=== PATIENT | female | born 1935 | race African-American/Black ===

== ENCOUNTER 2016-12-11 14:34 | Emergency (ER) | payer MEDICARE, OTHER ==
--- NOTE | 2016-12-11 17:25 | RAD ---
PA AND LATERAL CHEST: Date: 12/11/16 HISTORY: Cough. COMPARISON: 02/17/13. FINDINGS: Cardiac silhouette is mildly enlarged, but similar in size to the prior exam. Pulmonary vasculature is within normal limits. There is mild increase in interstitial densities at each lung base, greater on the left, but this is a stable finding when compared to the prior study and may be related to mi ld chronic lung changes. Lungs are otherwise clear. Vascular calcifications seen in the thoracic aor ta. No other interval change. IMPRESSION: 1. No acute cardiopulmonary process. 2. Cardiomegaly. 3. Mild prominence of the bibasilar interstitial densities, greater on the left, which is a stable finding and may be related to mild chronic lung changes. POS: KITTY
== END 2016-12-11 16:55 | disposition home or self-care (01) ==
LOC: NAV ERS 14:34
DX: J20.9 Acute bronchitis, unspecified (principal); I10 Essential (primary) hypertension
CPT/HCPCS: 71020; 93005

== ENCOUNTER 2020-03-12 04:39 | Emergency (ER) | payer MEDICARE, OTHER ==
[2020-03-12 05:47] LABS: Mean Corpuscular Hemoglobin 23.3 pg (27.0-31.0); Mean Corpuscular Volume 79.7 fL (78.0-98.0); Red Blood Cell (RBC) Count 4.71 mill/uL (4.20-5.40); White Blood Cell (WBC) Count 1.8 thou/uL (4.8-10.8)
[2020-03-12 05:48] LABS: Manual Diff?? YES; Mean Corpuscular HGB CONC 29.3 g/dL (32.0-36.0); Mean Platelet Volume 13.8 fL (7.4-10.4); Platelet Count 75 thou/uL (130-400)
[2020-03-12 05:54] LABS: ALT (SGPT) 21 U/L (8-55); AST (SGOT) 34 U/L (5-34); Albumin 3.3 g/dL (3.4-4.8); Alkaline Phosphatase 51 U/L (40-110); Anion Gap 12 mmol/L (10-20); BUN (Urea Nitrogen) 13 mg/dL (9.8-20.1); Bilirubin, Total 0.5 mg/dL (0.2-1.2); Calc. Creatinine Clearance 0 mL/min (70-130); Carbon Dioxide 20 mmol/L (23-31); Chloride 109 mmol/L (98-107); Estimated GFR-MDRD Greater than 90; Globulin 2.9 g/dL (2.4-3.5); Glucose 94 mg/dL (83-110); Lipase 12 U/L (8-78); Potassium 3.4 mmol/L (3.5-5.1); Protein, Total 6.2 g/dL (6.0-8.3); Sodium 138 mmol/L (136-145)
[2020-03-12 06:07] LABS: Lymphocytes 30 % (21-51); MDiff Complete? YES; Monocytes 14 % (0-10); Neutrophil 56 % (42-75); Nucleated RBC 1 % (0)
[2020-03-12 06:08] LABS: Platelet Morphology Comment Appears Decreased; RBC Morphology Normal
[2020-03-12 06:11] LABS: Bilirubin Negative (Negative); Blood, Urine Moderate (Negative); Clarity Clear (Clear); Glucose, Urine (Dipstick) Negative (Negative); Ketone, Urine 15 mg/dL (Negative); Leukocyte Negative (Negative); Nitrite Negative (Negative); Protein, Urine (Dipstick) 30 mg/dL (Neg-Trace)
[2020-03-12 06:14] LABS: Bacteria/HPF None Seen HPF (None Seen); Mucous/LPF 3+ LPF (<2+); Squamous Epithelial 0-3 HPF (0-3)
[2020-03-12 06:14] LABS: CKMB 2.8 ng/mL (0-6.6)
--- NOTE | 2020-03-12 07:32 | RAD ---
Exam: Chest one view HISTORY:Possible COVID 19 patient. Comparison: 02/17/2013, 12/11/2016 FINDINGS: Cardiac silhouette:Cardiomegaly Aorta: Elongation and atherosclerosis Pulmonary vessels: Normal Costophrenic angles: Clear LUNGS: Hyperinflation. There is persistent interstitial prominence likely representing chronic change . Superimposed infiltrate cannot be excluded. Pneumothorax: None Osseous abnormalities: No acute abnormality. Chronic changes in the right shoulder IMPRESSION: 1. Atherosclerosis 2. Hyperinflation with chronic interstitial changes. Superimposed infiltrate cannot be excluded.
[2020-03-12 09:19] LABS: Troponin I 0.029 ng/mL (< 0.028)
== END 2020-03-12 07:57 | disposition short-term general hospital (02) ==
LOC: NAV ERS 04:39
DX: D61.818 Other pancytopenia (principal); R79.89 Other specified abnormal findings of blood chemistry; I10 Essential (primary) hypertension; Z20.828 Contact with and (suspected) exposure to other viral communicable diseases
CPT/HCPCS: 51701; 71045; 80053; 81003; 81015; 82553; 83690; 84443; 84484; 85025; 93005; 96360; 96361

== ENCOUNTER 2020-03-18 16:22 | Inpatient (IN) | payer MEDICARE, MEDICAID, OTHER ==
[2020-03-18] MEDS ORDERED: Senokot S 8.6-50 MG TAB PO PRN (17:46)
[2020-03-18] MEDS: Enoxaparin Sodium 40 MG/0.4 ML SYRINGE SC SCH (20:31)
[2020-03-18] MEDS: Donepezil HCl 5 MG TAB PO SCH (20:31)
[2020-03-18] MEDS: Amlodipine 5 MG TAB PO SCH (20:31)
[2020-03-19] MEDS: Carvedilol 6.25 MG TAB PO SCH ×2 (08:59→18:15)
[2020-03-19] MEDS ORDERED: Prevnar 13-Val Conj/PF 0.5 ML SYRINGE IM ONE (09:00)
[2020-03-19] MEDS: Enoxaparin Sodium 40 MG/0.4 ML SYRINGE SC SCH ×2 (09:02→20:16)
[2020-03-19] MEDS: Acetaminophen 325 MG TAB PO PRN (09:02)
--- NOTE | 2020-03-19 10:56 | HP ---
CHIEF COMPLAINT: Recent COVID positive, here for therapy and nutrition. HISTORY OF PRESENT ILLNESS: This is an 84-year-old female, whom I have taken care of in the past and who has a long-standing history of noncompliance, I do not think I have seen her in the last couple of years and not sure if she is seeing somebody else, but she presented to the hospital with fatigue, weakness, and poor p.o. intake. She was COVID positive and admitted to [facility] in [place]. She did not have any hypoxemia and she did not require any COVID-19 regimen like steroids, anticoagulation, remdesivir, hydroxychloroquine or convalescent plasma. Her main problem at this time is poor p.o. intake. She was started on peripheral parenteral nutrition. She is also assessed by Speech Therapy and is on a dysphagic diet. She apparently ate 20% of her meals yesterday. She did have a low-grade fever yesterday and the day before, and she has been just treated with Tylenol. She was transferred here for therapy. The patient is resting in bed and just moaning. She does not respond to me to any verbal questions. She screams when you touch her, but she does not seem to be in any pain. No family at bedside. She was started on empiric Aricept, but I really feel that her dementia is more vascular and senile, and I doubt Aricept is going to make any difference. PAST MEDICAL HISTORY: 1. Hypertension. 2. Longstanding history of noncompliance. 3. Questionable history of iron-deficiency anemia. 4. Questionable history of venous stasis. PAST SURGICAL HISTORY: None documented. PSYCHOSOCIAL HISTORY: The patient denies any tobacco or alcohol abuse. No family present. ALLERGIES: NO KNOWN DRUG ALLERGIES. MEDICATIONS: She has been transferred here on the following medications: 1. Norvasc 10 mg at bedtime. 2. Carvedilol 6.25 mg b.i.d. 3. Aricept 5 mg daily. 4. Lovenox 40 mg subcu b.i.d. 5. Senokot-S 2 tablets p.o. b.i.d. p.r.n. constipation. REVIEW OF SYSTEMS: Not sure how accurate this is as the patient really pretty much moans through the questionnaire, but does not say yes to any chest pain, shortness of breath, PND, orthopnea or pedal edema. Denies any nausea, vomiting, diarrhea, constipation, hematemesis, melena or hematochezia. Denies any frequency, urgency, dysuria or hematuria. There is documentation of progressive weakness and poor p.o. intake. PHYSICAL EXAMINATION: GENERAL: This is an 84-year-old female, resting comfortably in bed. Does not really respond to any verbal commands. Occasional moans, but does not seem to be because of any pain or distress. VITAL SIGNS: She has a T-max of 100.3, pulse 70, respirations 22, oxygen saturation 93% on room air, and blood pressure 144/65. HEENT: Normocephalic and atraumatic. Bitemporal muscle wasting is noted. Pupils are equally reacting to light. NECK: No JVD, thyromegaly, cervical lymphadenopathy or throat exudates. No carotid bruits. CARDIOVASCULAR SYSTEM: S1 and S2 plus. RESPIRATORY SYSTEM: Normal vesicular breath sounds with occasional rhonchi. ABDOMEN: Soft, scaphoid, and nontender. Bowel sounds heard in all quadrants. EXTREMITIES: Without cyanosis or clubbing. Significant muscle atrophy is noted. CENTRAL NERVOUS SYSTEM: Awake, moves all 4 extremities spontaneously, really not cooperative for a comprehensive exam. LABORATORY VALUES: Pending. IMPRESSION: 1. COVID-19 positive with fever. 2. Hypertension. 3. Poor p.o. intake and possibly failure to thrive. 4. Longstanding history of noncompliance. 5. Deconditioning. PLAN: 1. Continue PPN. 2. Dysphagic diet. The patient will need assistance with feeding. 3. Continue blood pressure medications. 4. Check CBC and CMP. 5. Follow COVID-19 precautions. 6. Continue anticoagulation with Lovenox and monitor pulse oximetry and vital signs. 7. PT/OT eval and treat. 8. Routine laboratory values. 9. DVT prophylaxis. She is already on Lovenox. 10. Stress ulcer prophylaxis. We will start her on famotidine. 11. Decubitus precautions. 12. Discussed with nursing in detail. All questions answered. Job ID: [id number]
[2020-03-19] MEDS ORDERED: Sodium Chloride 0.9% 50 ML ONE (11:37)
[2020-03-19 12:29] LABS: ALT (SGPT) 81 U/L (8-55); AST (SGOT) 156 U/L (5-34); Albumin 2.6 g/dL (3.4-4.8); Alkaline Phosphatase 92 U/L (40-110); Anion Gap 13 mmol/L (10-20); BUN (Urea Nitrogen) 45 mg/dL (9.8-20.1); Bilirubin, Total 0.4 mg/dL (0.2-1.2); Calc. Creatinine Clearance 53 mL/min (70-130); Calcium 9.9 mg/dL (7.8-10.44); Carbon Dioxide 19 mmol/L (23-31); Chloride 111 mmol/L (98-107); Estimated GFR-MDRD 82; Glucose 132 mg/dL (83-110); Potassium 4.6 mmol/L (3.5-5.1); Protein, Total 5.6 g/dL (6.0-8.3); Sodium 138 mmol/L (136-145)
[2020-03-19 12:38] LABS: Hemoglobin 8.7 g/dL (12.0-16.0); Mean Corpuscular HGB CONC 29.9 g/dL (32.0-36.0); Mean Corpuscular Hemoglobin 23.6 pg (27.0-31.0); Mean Corpuscular Volume 79.2 fL (78.0-98.0); Mean Platelet Volume 15.1 fL (7.4-10.4); Platelet Count 113 thou/uL (130-400); RBC Distribution Width 18.3 % (11.5-14.5); Red Blood Cell (RBC) Count 3.66 mill/uL (4.20-5.40); White Blood Cell (WBC) Count 2.8 thou/uL (4.8-10.8)
[2020-03-19 13:30] LABS: MDiff Complete? YES
[2020-03-19 13:32] LABS: Anisocytosis SLIGHT = 6-15 cells (100X) (0-5/hpf); Band 1 % (5-11); Hypochromia SLIGHT = 6-15 cells (100X) (0-5/hpf); Lymphocytes 10 % (21-51); Monocytes 15 % (0-10); Neutrophil 74 % (42-75); Platelet Morphology Comment Appears Adequate
[2020-03-19] MEDS: AA 4.25 %/CALCIUM/LYTES/D5W 2,000 ML IV SCH (14:52)
[2020-03-19] MEDS: Donepezil HCl 5 MG TAB PO SCH (20:15)
[2020-03-19] MEDS: Famotidine 20 MG TAB PO SCH (20:15)
[2020-03-19] MEDS: Amlodipine 5 MG TAB PO SCH (20:15)
[2020-03-20] MEDS: Famotidine 20 MG TAB PO SCH ×2 (08:49→20:34)
[2020-03-20] MEDS: Enoxaparin Sodium 40 MG/0.4 ML SYRINGE SC SCH ×2 (08:49→20:35)
[2020-03-20] MEDS: Carvedilol 6.25 MG TAB PO SCH ×2 (08:50→17:22)
[2020-03-20] MEDS: Acetaminophen 325 MG TAB PO PRN (08:52)
[2020-03-20] MEDS: AA 4.25 %/CALCIUM/LYTES/D5W 2,000 ML IV SCH (14:14)
--- NOTE | 2020-03-20 15:56 | PRG ---
DATE OF SERVICE: 03/20/2020 SUBJECTIVE: Ms. Collins is doing the same. She ate very minimal breakfast, but apparently 50% of her lunch. She needs to be fed. She is on a pureed diet. No temperature today. OBJECTIVE: VITAL SIGNS: She is afebrile. Heart rate 83, respirations 18, oxygen saturation 93% on room air, blood pressure 144/65. CARDIOVASCULAR: S1-S2 plus. RESPIRATORY: Normal vesicular breath sounds. ABDOMEN: Soft, nontender. Bowel sounds heard in all quadrants. EXTREMITIES: Without cyanosis or clubbing. CENTRAL NERVOUS SYSTEM: Significant cognitive deficits, generalized weakness. IMPRESSION: 1. COVID positive, but asymptomatic and on room air. 2. Hypertension with long-standing history of noncompliance. 3. Dysphagia, on pureed diet. 4. Protein calorie malnutrition. 5. Failure to thrive. 6. Questionable history of iron deficiency anemia. PLAN: 1. Continue current medications. 2. Nutritional support. 3. Aspiration precautions. 4. Monitor respiratory status. 5. Physical therapy. 6. COVID-19 precautions. 7. Routine laboratory values. Job ID: [id number]
[2020-03-20] MEDS: Donepezil HCl 5 MG TAB PO SCH (20:34)
[2020-03-20] MEDS: Amlodipine 5 MG TAB PO SCH (20:34)
[2020-03-21] MEDS: Carvedilol 6.25 MG TAB PO SCH ×2 (09:07→19:33)
[2020-03-21] MEDS: Enoxaparin Sodium 40 MG/0.4 ML SYRINGE SC SCH ×2 (09:07→20:49)
[2020-03-21] MEDS: Famotidine 20 MG TAB PO SCH ×2 (09:07→20:49)
--- NOTE | 2020-03-21 14:06 | PRG ---
DATE OF SERVICE: 03/21/2020 SUBJECTIVE: Ms. Collins is doing the same. She is confused. She screams every time somebody touches her. She apparently ate about 25% to 50% of her meals. OBJECTIVE: VITAL SIGNS: She is afebrile; heart rate 85; respirations 18; oxygen saturation 96% on room air; blood pressure 165/55, this was before medications and after medications, 144/65. CARDIOVASCULAR: S1-S2 plus. RESPIRATORY: Normal vesicular breath sounds. ABDOMEN: Soft and nontender. Bowel sounds heard in all quadrants. EXTREMITIES: Without cyanosis or clubbing. CENTRAL NERVOUS SYSTEM: Pleasantly confused. Moves all four extremities. IMPRESSION: 1. Resolving COVID-19 infection. 2. No further fevers. 3. Poor p.o. intake. 4. Dementia, likely senile. 5. Hypertension. 6. History of iron deficiency anemia and failure to thrive. PLAN: 1. Do a 3-day calorie count. 2. Continue to feed the patient and encourage p.o. intake. 3. Monitor blood pressure. 4. Monitor respiratory status. 5. Physical therapy. 6. COVID-19 precautions. 7. We will discuss with daughter, Nadia Rose. If her p.o. intake is poor and see what her wishes are, I doubt even if we place a PEG tube that the patient will given her dementia and confusion and agitation. Job ID: [id number]
[2020-03-21] MEDS: AA 4.25 %/CALCIUM/LYTES/D5W 2,000 ML IV SCH (14:45)
[2020-03-21] MEDS: Donepezil HCl 5 MG TAB PO SCH (20:49)
[2020-03-21] MEDS: Amlodipine 5 MG TAB PO SCH (20:49)
[2020-03-22] MEDS: Carvedilol 6.25 MG TAB PO SCH ×2 (07:53→17:36)
[2020-03-22] MEDS: Enoxaparin Sodium 40 MG/0.4 ML SYRINGE SC SCH ×2 (07:55→20:37)
[2020-03-22] MEDS: Famotidine 20 MG TAB PO SCH ×2 (07:56→20:37)
[2020-03-22] MEDS: Acetaminophen 325 MG TAB PO PRN (07:56)
[2020-03-22] MEDS: AA 4.25 %/CALCIUM/LYTES/D5W 2,000 ML IV SCH (12:12)
--- NOTE | 2020-03-22 13:35 | PRG ---
DATE OF SERVICE: 03/22/2020 SUBJECTIVE: Ms. Collins is doing the same, confused, screams when you touch her, apparently ate about 50%. Tolerating her PPN, 3-day calorie count underway. I am going to call her power of corporate attorney, Nadia Rose and discuss the case with her. She is still a full code at present, so we will check and see, get information on that as well. OBJECTIVE: VITAL SIGNS: She is afebrile. Heart rate 71, respirations 18, oxygen saturation 90% on room air and she is now on 92% at 3 L, and blood pressure 159/72. CARDIOVASCULAR: S1 and S2 plus. RESPIRATORY: Normal vesicular breath sounds. ABDOMEN: Soft, nontender. Bowel sounds heard in all quadrants. EXTREMITIES: Without cyanosis or clubbing. CENTRAL NERVOUS SYSTEM: Confused. Moves all 4 extremities, but sleeps in a position. Really does not respond to any verbal stimuli. IMPRESSION: 1. COVID-19 positive, now with hypoxemia. 2. Poor p.o. intake. 3. Hypertension. 4. History of iron deficiency anemia. 5. Dementia. 6. Significant deconditioning. PLAN: 1. Continue current medications. 2. Await 3-day calorie count. 3. Discussed with [place] regarding code status. 4. Monitor hypoxemia. This may be getting to be active COVID-19 and may need aggressive treatment, and depending upon Nadia Rose's wishes, we may have to transfer her up the road. The patient has been refusing lab work, so none in the system since March 19. Job ID: [id number]
[2020-03-22] MEDS: Donepezil HCl 5 MG TAB PO SCH (20:37)
[2020-03-22] MEDS: Amlodipine 5 MG TAB PO SCH (20:37)
[2020-03-23] MEDS: Carvedilol 6.25 MG TAB PO SCH ×2 (07:46→17:52)
[2020-03-23] MEDS: Famotidine 20 MG TAB PO SCH ×2 (07:48→21:28)
[2020-03-23] MEDS: Enoxaparin Sodium 40 MG/0.4 ML SYRINGE SC SCH ×2 (07:48→21:28)
[2020-03-23] MEDS: Acetaminophen 325 MG TAB PO PRN (07:49)
[2020-03-23] MEDS: AA 4.25 %/CALCIUM/LYTES/D5W 2,000 ML IV SCH (11:34)
--- NOTE | 2020-03-23 13:20 | PRG ---
DATE OF SERVICE: 03/23/2020 SUBJECTIVE: Ms. Collins apparently is eating better and more awake and responsive, per nursing. She apparently ate 100% of breakfast. The patient is resting comfortably and denies any concerns. OBJECTIVE: VITAL SIGNS: She is afebrile. Heart rate 69; respirations 18; oxygen saturation 94%, she is down to 2.5 L of oxygen, is fluctuating anywhere between 88% to 94% and not sure if this is more related to her ; blood pressure is 123/60. CARDIOVASCULAR: S1 and S2 plus. RESPIRATORY: Normal vesicular breath sounds. ABDOMEN: Soft, nontender. Bowel sounds heard in all quadrants. EXTREMITIES: Without cyanosis or clubbing. CENTRAL NERVOUS SYSTEM: Still confused, awake, grossly nonfocal. IMPRESSION: 1. COVID-19 with hypoxemia. 2. Acute hypoxemic respiratory failure. 3. Improving p.o. intake. 4. Hypertension. 5. Deconditioning. 6. History of iron deficiency anemia. 7. History of medical noncompliance and cognitive impairment. PLAN: 1. Continue supportive care. 2. Await 3-day calorie count. 3. Therapy as tolerated. 4. Titrate oxygen as tolerated. 5. Discussed with her wylhn-su-maqwoysu, Nadia Rose yesterday, and she has not even thought about any advanced directives and she states that at this time she wants Ms. Collins to be a full code. She also has not thought about her feeding tube and she is going to discuss with the rest of the family, but if she keeps eating like she is doing today, then she should be . 6. Continue DVT prophylaxis with PlexiPulses. 7. Routine laboratory values. Job ID: [id number]
[2020-03-23] MEDS: Amlodipine 5 MG TAB PO SCH (21:27)
[2020-03-23] MEDS: Donepezil HCl 5 MG TAB PO SCH (21:28)
[2020-03-24] MEDS: Enoxaparin Sodium 40 MG/0.4 ML SYRINGE SC SCH ×2 (09:34→20:40)
[2020-03-24] MEDS: Famotidine 20 MG TAB PO SCH ×2 (09:35→20:40)
[2020-03-24] MEDS: Carvedilol 6.25 MG TAB PO SCH ×2 (09:35→17:47)
[2020-03-24] MEDS: AA 4.25 %/CALCIUM/LYTES/D5W 2,000 ML IV SCH (11:49)
--- NOTE | 2020-03-24 13:31 | PRG ---
DATE OF SERVICE: 03/24/2020 SUBJECTIVE: Ms. Collins is doing the same, not doing much with therapy. Her intake is still fluctuating. One of the meals she does well, but the others not so much, still waiting on the 3-day calorie count. Continues to require oxygen. OBJECTIVE: VITAL SIGNS: She is afebrile, heart rate 60, respirations 18, oxygen saturation 93% on 3 L via nasal cannula, blood pressure 130/63. CARDIOVASCULAR: S1 and S2 plus. RESPIRATORY: Normal vesicular breath sounds. ABDOMEN: Soft, nontender. Bowel sounds heard in all quadrants. EXTREMITIES: Without cyanosis or clubbing. CENTRAL NERVOUS SYSTEM: Cognitive deficits. Otherwise, no change. IMPRESSION: 1. COVID positive with hypoxemia and acute hypoxemic respiratory failure. 2. Hypertension. 3. Poor p.o. intake. 4. Possible dementia. 5. History of medical noncompliance. PLAN: 1. Continue current medications. 2. Nutritional support. 3. Await calorie count. 4. Monitor blood pressure. 5. Therapy as tolerated. 6. The patient refusing lab work. 7. The patient remains power of regulatory attorney. Job ID: [id number]
[2020-03-24] MEDS ORDERED: AA 4.25 %/CALCIUM/LYTES/D5W 2,000 ML IV SCH (14:00)
[2020-03-24] MEDS: Donepezil HCl 5 MG TAB PO SCH (20:40)
[2020-03-24] MEDS: Amlodipine 5 MG TAB PO SCH (20:40)
[2020-03-25] MEDS: Enoxaparin Sodium 40 MG/0.4 ML SYRINGE SC SCH ×2 (09:12→21:31)
[2020-03-25] MEDS: Carvedilol 6.25 MG TAB PO SCH ×2 (09:13→16:42)
[2020-03-25] MEDS: Famotidine 20 MG TAB PO SCH ×2 (09:13→21:31)
--- NOTE | 2020-03-25 13:38 | PRG ---
DATE OF SERVICE: 03/25/2020 SUBJECTIVE: Ms. Collins is much more awake and responsive to me today. She responds back verbally to my questions. She apparently did well with therapy as well. I got the 3-day calorie count back and she has intake usually about 90% to 130% of her daily requirements, and plan is to stop her TPN. I also noticed her to have her nasal cannula up in her face, and I advised the nursing to check her pulse oximetry and it was 96% on room air, so we are going to discontinue her oxygen. I informed her power of plastic surgery nurse, Ms. Rose, and if she continues to progress like this, probably within the next week she should be ready to go home. OBJECTIVE: VITAL SIGNS: She is afebrile. Heart rate 64, respirations 20, oxygen saturation 96% now on room air, blood pressure 130/63. CARDIOVASCULAR SYSTEM: S1 and S2 plus. RESPIRATORY SYSTEM: Normal vesicular breath sounds. ABDOMEN: Soft and nontender. Bowel sounds heard in all quadrants. EXTREMITIES: Without cyanosis or clubbing. CENTRAL NERVOUS SYSTEM: Generalized weakness. Grossly nonfocal. LABORATORY VALUES: The patient continues to refuse labs. IMPRESSION: 1. COVID-19 with resolved acute hypoxemic respiratory failure. 2. Hypertension, well controlled. 3. Deconditioning. 4. Poor p.o. intake, much improved. PLAN: 1. Continue current medications. 2. Nutritional support. 3. Physical therapy. 4. DVT prophylaxis with PlexiPulses. 5. Decubitus precautions. 6. Stress ulcer prophylaxis. 7. Discharge planning. Job ID: [id number]
[2020-03-25] MEDS: Amlodipine 5 MG TAB PO SCH (21:31)
[2020-03-25] MEDS: Donepezil HCl 5 MG TAB PO SCH (21:31)
[2020-03-26] MEDS: Carvedilol 6.25 MG TAB PO SCH ×2 (08:04→17:36)
[2020-03-26] MEDS: Enoxaparin Sodium 40 MG/0.4 ML SYRINGE SC SCH ×2 (08:05→21:20)
[2020-03-26] MEDS: Famotidine 20 MG TAB PO SCH ×2 (08:05→21:17)
--- NOTE | 2020-03-26 09:30 | PRG ---
DATE OF SERVICE: 03/26/2020 SUBJECTIVE: Ms. Collins is up in her chair. She apparently is not cooperating much with therapy this morning. She also hardly ate her breakfast. She did eat 100% of her dinner last night. She remains off her oxygen. She remains more alert. OBJECTIVE: VITAL SIGNS: She is afebrile, heart rate 70, respirations 20, oxygen saturation 92% on room air, and blood pressure 132/63. CARDIOVASCULAR SYSTEM: S1 and S2 plus. RESPIRATORY SYSTEM: Normal vesicular breath sounds. ABDOMEN: Soft and nontender. Bowel sounds heard in all quadrants. EXTREMITIES: Without cyanosis or clubbing. CENTRAL NERVOUS SYSTEM: Persistent cognitive deficits and generalized weakness. IMPRESSION: 1. Resolved COVID-19 infection with resolved acute hypoxemic respiratory failure. 2. Hypertension, well controlled. 3. History of iron-deficiency anemia. 4. Longstanding history of noncompliance. 5. Improving p.o. intake. 6. Deconditioning, gradual improvement. 7. Cognitive deficits. PLAN: 1. Continue current medications. 2. Nutritional support with aspiration precautions. 3. Physical therapy as the patient cooperates and tolerates. 4. The patient is still refusing lab work, aware of the risks. 5. Monitor vital signs and respiratory status. 6. Spoke with her POA, Nadia Rose, yesterday and updated her on Ms. Collins' condition. 7. Dr. Pelaez on-call this weekend. Job ID: [id number]
[2020-03-26] MEDS: Amlodipine 5 MG TAB PO SCH (21:17)
[2020-03-26] MEDS: Donepezil HCl 5 MG TAB PO SCH (21:18)
[2020-03-27] MEDS: Carvedilol 6.25 MG TAB PO SCH ×2 (08:28→16:59)
[2020-03-27] MEDS: Enoxaparin Sodium 40 MG/0.4 ML SYRINGE SC SCH ×2 (08:28→21:00)
[2020-03-27] MEDS: Famotidine 20 MG TAB PO SCH ×2 (08:28→21:00)
--- NOTE | 2020-03-27 09:05 | PRG ---
DATE OF SERVICE: 03/27/2020 SUBJECTIVE: Ms. Collins is a pleasant 84-year-old black female, who was COVID positive. She was stabilized, turned negative, and transferred to inpatient rehab because she had significant decrease in appetite. She ended up having to have TPN done, but her appetite has gradually increased and the TPN was stopped. She basically is back to her baseline. She does refuse laboratories, but when I talked to her this morning, she said she would continue to eat. Subjectively, the patient apparently has some cognitive deficits, and when I asked her if she was hungry, she just started to laugh and laugh, and said yes she would like some barron and eggs. OBJECTIVE: VITAL SIGNS: Today reveal blood pressure last night 144/68, blood pressure this morning 151/74; pulse 65; respirations 20; O2 saturation 93% on room air; and T-max 98.3. GENERAL: This is a well-developed, well-nourished, 84-year-old black female, in no apparent distress at this time. HEENT: Reveals normocephalic and nontraumatic cranium. Pupils are equally round and reactive. Extraocular movements are intact. Nose and throat are slightly dry. NECK: Supple without masses, nodes, or bruits. CHEST: Clear to auscultation. No rales, rhonchi, wheezes, or cough is heard. HEART: Reveals a regular rate and rhythm without murmurs, gallops, or rubs. ABDOMEN: Soft and nontender. Normal bowel sounds in all 4 quadrants. No rebound or guarding is noted. : Deferred. EXTREMITIES: Reveal no clubbing, cyanosis, or edema. NEUROLOGIC: The patient has persistent cognitive deficits, generalized weakness. IMPRESSION: 1. Resolved COVID-19. 2. Resolved acute hypoxic respiratory failure. 3. Hypertension, fairly well controlled. 4. Iron deficiency anemia, stable. 5. Longstanding history of noncompliance. 6. Much improved p.o. intake. 7. Deconditioned with generalized weakness. 8. Cognitive deficits. PLAN: 1. Continue to encourage the patient to eat well with aspiration precautions. 2. Continue present medications. 3. Continue to encourage the patient to get lab work. 4. Continue to monitor vital signs and respiratory status. 5. Stress ulcer prophylaxis. 6. Continue present medications. 7. Continue physical therapy and occupational therapy. Job ID: [id number]
[2020-03-27] MEDS: Donepezil HCl 5 MG TAB PO SCH (21:00)
[2020-03-27] MEDS: Amlodipine 5 MG TAB PO SCH (21:00)
[2020-03-28] MEDS: Enoxaparin Sodium 40 MG/0.4 ML SYRINGE SC SCH ×2 (08:18→21:57)
[2020-03-28] MEDS: Famotidine 20 MG TAB PO SCH ×2 (08:18→21:54)
[2020-03-28] MEDS: Carvedilol 6.25 MG TAB PO SCH ×2 (08:18→18:02)
--- NOTE | 2020-03-28 10:01 | PRG ---
DATE OF SERVICE: 03/28/2020 HISTORY OF PRESENT ILLNESS: Ms. Collins had a good day yesterday. She is actually being much more talkative and much more responsive. She states she is not hungry this morning, but I did encourage her to eat a little bit so that she could get stronger and go home soon. OBJECTIVE: VITAL SIGNS: Today reveal blood pressure 151/74, pulse 63 to 67, respirations 17 to 18, O2 saturation 93% to 96% on room air, T-max 97.7. GENERAL: This is a well-developed, well-nourished, very pleasant 84-year-old black female who is awake, alert and very talkative today. She is able to carry on conversation. HEENT: Normocephalic, nontraumatic cranium. Pupils are equal, round, and reactive. Extraocular movements are intact. Nose and throat are still slightly dry. NECK: Supple without masses, nodes, or bruits. CHEST: Clear to auscultation. No rales, rhonchi, wheezes, or cough is noted. HEART: Reveals a regular rate and rhythm without murmurs, gallops, or rubs. ABDOMEN: Soft and nontender. Normal bowel sounds noted in all 4 quadrants. No rebound or guarding is noted. : Deferred. EXTREMITIES: Reveal no clubbing, cyanosis, or edema. The patient has persistent cognitive deficits, but is much more alert. Generalized weakness. IMPRESSION: 1. Resolved coronavirus disease-19. 2. Resolved acute hypoxic respiratory failure. 3. Hypertension, fairly well controlled. 4. Iron deficiency anemia, stable. 5. Much improved p.o. intake. 6. Long-standing history of noncompliance. 7. Deconditioning with generalized weakness, improving. 8. Cognitive deficits. PLAN: 1. Continue present medication. 2. Continue to encourage the patient to eat well. 3. Hopefully, we can get some lab work for one of these days. 4. Continue to monitor vital signs, respiratory status. 5. Stress ulcer prophylaxis. 6. Continue present medications. 7. Continue present physical therapy and occupational therapy. Job ID: [id number]
[2020-03-28] MEDS: Donepezil HCl 5 MG TAB PO SCH (21:55)
[2020-03-28] MEDS: Amlodipine 5 MG TAB PO SCH (21:56)
[2020-03-29] MEDS: Famotidine 20 MG TAB PO SCH ×2 (08:43→21:19)
[2020-03-29] MEDS: Enoxaparin Sodium 40 MG/0.4 ML SYRINGE SC SCH ×2 (08:43→21:19)
[2020-03-29] MEDS: Carvedilol 6.25 MG TAB PO SCH ×2 (08:43→16:35)
--- NOTE | 2020-03-29 13:54 | PRG ---
DATE OF SERVICE: 03/29/2020 SUBJECTIVE: Ms. Collins is doing well. Denies any complaints. Slowly improving. Therapy remains on room air. No fever. No other concerns. Remains pleasantly confused. OBJECTIVE: VITAL SIGNS: She is afebrile. Heart rate 69, respirations 20, oxygen saturation 94% on room air, blood pressure 138/80. CARDIOVASCULAR: S1 and S2 plus. RESPIRATORY: Normal vesicular breath sounds. ABDOMEN: Soft, nontender. Bowel sounds heard in all quadrants. EXTREMITIES: Without cyanosis or clubbing. Peripheral pulses are palpable. CENTRAL NERVOUS SYSTEM: Grossly nonfocal other than improving deconditioning and cognitive deficits. IMPRESSION: 1. COVID-19 was tested positive on 03/12. She has been off her oxygen for almost 5 days now. No further symptoms. We will take her off respiratory isolation and droplet precautions. 2. Hypertension. 3. Possible dementia. 4. Longstanding history of noncompliance. 5. Improving p.o. intake. 6. Improving deconditioning. PLAN: 1. Discontinue isolation. 2. Nutritional support. 3. Monitor blood pressure. 4. Therapy. 5. Routine laboratory values. The patient has been refusing. 6. Discharge planning. Job ID: [id number]
[2020-03-29] MEDS: Amlodipine 5 MG TAB PO SCH (21:19)
[2020-03-29] MEDS: Donepezil HCl 5 MG TAB PO SCH (21:19)
[2020-03-30] MEDS: Carvedilol 6.25 MG TAB PO SCH ×2 (09:03→17:22)
[2020-03-30] MEDS: Enoxaparin Sodium 40 MG/0.4 ML SYRINGE SC SCH ×2 (09:03→20:34)
[2020-03-30] MEDS: Famotidine 20 MG TAB PO SCH ×2 (09:03→20:34)
--- NOTE | 2020-03-30 13:59 | PRG ---
DATE OF SERVICE: 03/30/2020 SUBJECTIVE: Ms. Collins is resting in bed. She is sleeping and arousable, but really not responsive to me. Therapy states that she sometimes cooperates but when she cooperates, she is able to do most of the activity that she needs to do. She is eating reasonably well. Remains off her oxygen. They are going to discuss about her case today and hopefully do some family training, and anticipate discharge by the end of this week if she continues to not cooperate. OBJECTIVE: VITAL SIGNS: She is afebrile. Heart rate 66, respirations 18, oxygen saturation 95% on room air, blood pressure 155/70. CARDIOVASCULAR SYSTEM: S1 and S2 plus. RESPIRATORY SYSTEM: Normal vesicular breath sounds. ABDOMEN: Soft and nontender. Bowel sounds heard in all quadrants. EXTREMITIES: Without cyanosis or clubbing. CENTRAL NERVOUS SYSTEM: Cognitive deficits, otherwise nonfocal. IMPRESSION: 1. Resolved COVID-19 infection. 2. Resolved acute hypoxemic respiratory failure. 3. Improving p.o. intake. 4. Cognitive deficits. 5. Hypertension. 6. Long-standing history of noncompliance. 7. Deconditioning. PLAN: 1. Continue current medications. 2. Low-sodium diet. 3. Therapy if she participates. 4. Discharge planning. 5. Family training. Job ID: [id number]
[2020-03-30] MEDS: Amlodipine 5 MG TAB PO SCH (20:34)
[2020-03-30] MEDS: Donepezil HCl 5 MG TAB PO SCH (20:34)
[2020-03-31] MEDS: Carvedilol 6.25 MG TAB PO SCH ×2 (07:51→18:05)
[2020-03-31] MEDS: Enoxaparin Sodium 40 MG/0.4 ML SYRINGE SC SCH ×2 (07:53→21:39)
[2020-03-31] MEDS: Famotidine 20 MG TAB PO SCH ×2 (07:53→21:39)
--- NOTE | 2020-03-31 13:41 | PRG ---
DATE OF SERVICE: 03/31/2020 SUBJECTIVE: Ms. Collins is sleeping, but arousable. She denies any questions or concerns. She is mostly nonverbal, discussed with nursing. Apparently, Therapy has contacted daughter to come for family training. The patient is mostly uncooperative with therapy sessions. OBJECTIVE: VITAL SIGNS: She is afebrile. Heart rate 66, respirations 18, oxygen saturation 95% on room air, blood pressure is 132/64. CARDIOVASCULAR: S1 and S2 plus. RESPIRATORY: Normal vesicular breath sounds. ABDOMEN: Soft, nontender. Bowel sounds heard in all quadrants. EXTREMITIES: Without cyanosis or clubbing. CENTRAL NERVOUS SYSTEM: Generalized weakness. IMPRESSION: 1. Resolved COVID-19 infection. 2. Resolved acute hypoxemic respiratory failure. 3. Improving p.o. intake. 4. Hypertension, reasonable control. 5. Deconditioning. 6. Long-standing history of noncompliance. PLAN: 1. Continue current medications. 2. Nutritional support. 3. Therapy as tolerated. 4. Family training. 5. Discharge planning. Job ID: [id number]
[2020-03-31] MEDS: Amlodipine 5 MG TAB PO SCH (21:39)
[2020-03-31] MEDS: Donepezil HCl 5 MG TAB PO SCH (21:39)
[2020-04-01] MEDS: Carvedilol 6.25 MG TAB PO SCH ×2 (09:37→17:11)
[2020-04-01] MEDS: Enoxaparin Sodium 40 MG/0.4 ML SYRINGE SC SCH ×2 (09:38→20:50)
[2020-04-01] MEDS: Famotidine 20 MG TAB PO SCH ×2 (09:38→21:00)
--- NOTE | 2020-04-01 13:29 | PRG ---
DATE OF SERVICE: 04/01/2020 SUBJECTIVE: Ms. Collins is doing same. Awaiting family training and then she should be ready for discharge. Discussed with nursing. No concerns. OBJECTIVE: VITAL SIGNS: She is afebrile. Heart rate 66, respirations 18, oxygen saturation 97% on room air, blood pressure 159/73. CARDIOVASCULAR SYSTEM: S1 and S2 plus. RESPIRATORY SYSTEM: Normal vesicular breath sounds. ABDOMEN: Soft, nontender. Bowel sounds heard in all quadrants. EXTREMITIES: Without cyanosis or clubbing. CENTRAL NERVOUS SYSTEM: Generalized weakness and cognitive deficits. IMPRESSION: 1. Resolved COVID-19 infection. 2. Resolved acute hypoxemic respiratory failure. 3. Hypertension. 4. Improving p.o. intake. 5. Cognitive deficits, chronic. 6. Deconditioning, still low improvement. PLAN: 1. Continue current medications. 2. Nutritional support. 3. Aspiration precautions. 4. Monitor blood pressure. 5. DVT prophylaxis with PlexiPulses. 6. Decubitus precaution. 7. Therapy. 8. Discharge planning. Job ID: [id number]
[2020-04-01] MEDS: Donepezil HCl 5 MG TAB PO SCH (20:51)
[2020-04-01] MEDS: Amlodipine 5 MG TAB PO SCH (20:51)
[2020-04-01] MEDS ORDERED: Famotidine 20 MG TAB ONE (20:55)
[2020-04-02] MEDS ORDERED: Famotidine 20 MG TAB ONE (08:07)
[2020-04-02] MEDS: Famotidine 20 MG TAB PO SCH ×2 (08:33→21:32)
[2020-04-02] MEDS: Enoxaparin Sodium 40 MG/0.4 ML SYRINGE SC SCH ×2 (08:33→21:31)
[2020-04-02] MEDS: Carvedilol 6.25 MG TAB PO SCH ×2 (08:33→16:44)
--- NOTE | 2020-04-02 09:09 | PRG ---
DATE OF SERVICE: 04/02/2020 SUBJECTIVE: Ms. Collins is resting in bed. She is participating on and off with therapy. Therapy has notified me that she will need a hospital bed at home as well as a wheelchair. The patient does have cognitive impairment and has impulsive behavior and is at high risk for falls. Daughter and Therapy apparently feel that it is best that she have a wheelchair for mobility within the house when she gets more confused. The patient does also have some significant increased muscle tone and would benefit from a hospital bed, where she can be positioned at various angles, which is not possible with the regular bed. This is also easier for the niece, who takes care of her to get her in and out of bed if the height is adjustable. The patient does not need any traction. She does not have any heart failure. She does have significant deconditioning. She seems to yell and scream when she is touched or moved, so I am not sure she is in pain, but if that is the case, a hospital bed would help relieve it by allowing her to sleep in different positions, which is not possible with the regular bed. Please use this note as a [id number] for her hospital bed and wheelchair. When she is not confused, will be able to use the wheelchair, but the wheelchair is for her niece to push her inside the house. Niece states that there is enough room at home for them to use a manual wheelchair. OBJECTIVE: VITAL SIGNS: The patient is afebrile. Heart rate 58, respirations 20, oxygen saturation 97% on room air, blood pressure 124/60. CARDIOVASCULAR: S1, S2 plus. RESPIRATORY: Normal vesicular breath sounds. ABDOMEN: Soft, nontender. Bowel sounds heard in all quadrants. EXTREMITIES: Without cyanosis or clubbing. CENTRAL NERVOUS SYSTEM: Generalized weakness, cognitive deficits, otherwise nonfocal. IMPRESSION: 1. Hypertension, well controlled. 2. Cognitive dysfunction, chronic. 3. Resolved COVID-19 infection. 4. Resolved acute hypoxemic respiratory failure. 5. Deconditioning. 6. Long-standing history of noncompliance. PLAN: 1. Continue current medications. 2. Heart-healthy diet with aspiration precautions. 3. Therapy as tolerated. 4. Arrange for hospital bed and wheelchair. 5. DVT prophylaxis with PlexiPulses. The patient most of the time refuses to wear it. 6. Decubitus precautions. 7. Stress ulcer prophylaxis. 8. Dr. Pelaez on-call this weekend. Niece states that she is busy this weekend and she can take Mrs. Collins home on Sunday. Job ID: [id number]
[2020-04-02] MEDS: Amlodipine 5 MG TAB PO SCH (21:32)
[2020-04-02] MEDS: Donepezil HCl 5 MG TAB PO SCH (21:32)
[2020-04-03] MEDS: Famotidine 20 MG TAB PO SCH ×2 (08:33→21:43)
[2020-04-03] MEDS: Enoxaparin Sodium 40 MG/0.4 ML SYRINGE SC SCH ×2 (08:34→21:43)
[2020-04-03] MEDS: Carvedilol 6.25 MG TAB PO SCH ×2 (08:34→16:18)
[2020-04-03] MEDS: Donepezil HCl 5 MG TAB PO SCH (21:43)
[2020-04-03] MEDS: Amlodipine 5 MG TAB PO SCH (21:43)
[2020-04-04 06:01] VITALS: BMI 18.1
--- NOTE | 2020-04-04 08:41 | PRG ---
DATE OF SERVICE: 04/04/2020 SUBJECTIVE: The patient is an 84-year-old black female who was COVID positive. She was treated, improved significantly, and was brought to [facility] for physical therapy and occupational therapy. The patient is noted to have some significant dementia that may have been aggravated by her hypoxic respiratory failure. She has iron deficient anemia and her oral intake has been poor. Since she has been here, we have been feeding her and it has much improved. Yesterday, the caregiver states she ate about half or a little bit more, so far today she is eating pretty much all of her breakfast. OBJECTIVE: VITAL SIGNS: Today reveal blood pressure 131/63, pulse 64, respirations 20, O2 saturation 97% on room air, T-max 98.3. GENERAL: This is a well-developed, well-nourished 84-year-old black female who is presently eating breakfast and eating really well. HEENT: Reveals normocephalic and nontraumatic cranium. Pupils are equally round and reactive. Extraocular movements are intact. Nose and throat are dry, but clear. NECK: Supple without masses, nodes, or bruits. CHEST: Clear to auscultation. No rales, rhonchi, wheezes, or cough is noted. HEART: Reveals a regular rate and rhythm without murmurs, gallops, or rubs. ABDOMEN: Soft and nontender. Normal bowel sounds are noted in all 4 quadrants. No rebound or guarding is noted. GENITOURINARY: Deferred. EXTREMITIES: Reveal no clubbing, cyanosis, or edema. NEUROLOGIC: The patient has significant persistent cognitive deficits but when she eats, she is much more alert. ASSESSMENT: 1. Resolved coronavirus disease-19. 2. Resolved acute hypoxic respiratory failure. 3. Hypertension, well controlled. 4. Iron deficiency anemia, stable. 5. Poor oral intake unless she is fed. 6. History of noncompliance in the past. 7. Generalized weakness with deconditioning. 8. Cognitive deficits. PLAN: 1. Continue to encourage the patient to eat and continue to feed the patient. 2. Continue to monitor the patient's vital signs and respiratory status. 3. Continue present medications. 4. Stress ulcer prophylaxis. 5. Decubitus precautions. 6. Continue PT and OT. Dr. Ivan will be back to care for the patient after 9 o'clock tonight. Job ID: [id number]
--- NOTE | 2020-04-04 08:42 | PRG ---
DATE OF SERVICE: 04/03/2020 SUBJECTIVE: Ms. Collins is an 84-year-old black female with dementia, but is recovering from coronavirus. She is extremely weak and has had significant acute hypoxic respiratory failure. She is doing fairly well here in rehab, still somewhat anemic. She is challenged because of her dementia. Dr. Smith did order a wheelchair for her niece, who cares for her to have at home to get her around and that is going to be a godsend in their house. She is found eating this morning, but has to be fed or she does not eat well. She had a good day yesterday and she has no concerns or complaints. Presently, a caregiver is feeding her. OBJECTIVE: VITAL SIGNS: Reveal blood pressure 123/55, pulse 68, respirations 20, O2 saturations 95% to 96% on room air, T-max 96.5. GENERAL: This is a well-developed, well-nourished black female, in no apparent distress at this time. HEENT: Reveals normocephalic and nontraumatic cranium. Pupils equally round and reactive. Extraocular movements are intact. Nose and throat are slightly dry. NECK: Supple without masses, nodes, or bruits. CHEST: Clear to auscultation. No rales, rhonchi, wheezes, or cough is noted. HEART: Reveals a regular rate and rhythm without murmurs, gallops, or rubs. ABDOMEN: Soft, nontender without organomegaly. Normal bowel sounds are heard in all 4 quadrants. No rebound or guarding is noted. : Deferred. EXTREMITIES: Reveal no clubbing, cyanosis, or edema. ASSESSMENT: 1. Generalized weakness. 2. Cognitive deficits. 3. Hypertension, well controlled. 4. Resolved COVID-19 infection. 5. Resolved acute hypoxic respiratory failure. 6. Deconditioning. 7. History of noncompliance. PLAN: 1. Continue healthy heart diet with aspiration precautions. 2. Continue to feed the patient so she eats well. 3. Continue therapy. 4. Hospital bed and wheelchair have been ordered for the patient at home. 5. Plexipulses for her DVT prophylaxis. 6. Decubitus precautions. 7. Stress ulcer prophylaxis. 8. Plan on discharge on Sunday. Job ID: [id number]
[2020-04-04] MEDS: Carvedilol 6.25 MG TAB PO SCH ×2 (09:30→17:01)
[2020-04-04] MEDS: Famotidine 20 MG TAB PO SCH ×2 (09:30→21:05)
[2020-04-04] MEDS: Enoxaparin Sodium 40 MG/0.4 ML SYRINGE SC SCH ×2 (09:30→21:06)
[2020-04-04] MEDS: Amlodipine 5 MG TAB PO SCH (21:05)
[2020-04-04] MEDS: Donepezil HCl 5 MG TAB PO SCH (21:06)
[2020-04-05] MEDS: Carvedilol 6.25 MG TAB PO SCH ×2 (07:45→17:20)
[2020-04-05] MEDS: Famotidine 20 MG TAB PO SCH ×2 (07:46→20:41)
[2020-04-05] MEDS: Enoxaparin Sodium 40 MG/0.4 ML SYRINGE SC SCH ×2 (07:46→20:42)
--- NOTE | 2020-04-05 13:09 | PRG ---
DATE OF SERVICE: 04/05/2020 SUBJECTIVE: Ms. Collins is resting in bed. She nods her head and says no for any concerns. Anticipated discharge is tomorrow. Apparently, her DME has been approved according to nursing. She is doing the same. OBJECTIVE: VITAL SIGNS: She is afebrile. Heart rate 57, respirations 18, oxygen saturation 97% on room air, blood pressure 139/63. CARDIOVASCULAR: S1 and S2 plus. RESPIRATORY: Normal vesicular breath sounds. ABDOMEN: Soft, nontender. Bowel sounds heard in all quadrants. EXTREMITIES: Without cyanosis or clubbing. CENTRAL NERVOUS SYSTEM: Cognitive deficits present, grossly nonfocal. IMPRESSION: 1. Resolved COVID-19 infection and acute hypoxemic respiratory failure. 2. Hypertension. 3. Improved p.o. intake. 4. Mild dysphagia. 5. Cognitive dysfunction. 6. Longstanding history of noncompliance. PLAN: 1. Continue current medications. 2. Discharge planning. 3. Anticipate discharge tomorrow. 4. Nutritional support with aspiration precautions. 5. Outpatient followup with PCP. Job ID: [id number]
[2020-04-05] MEDS: Amlodipine 5 MG TAB PO SCH (20:41)
[2020-04-05] MEDS: Donepezil HCl 5 MG TAB PO SCH (20:42)
[2020-04-06] MEDS: Carvedilol 6.25 MG TAB PO SCH (08:15)
[2020-04-06 08:16] VITALS: BP 137/64
[2020-04-06] MEDS: Famotidine 20 MG TAB PO SCH (08:16)
[2020-04-06] MEDS: Enoxaparin Sodium 40 MG/0.4 ML SYRINGE SC SCH (08:16)
[2020-04-06 08:47] VITALS: TEMP 98.2
--- NOTE | 2020-04-06 15:11 | DIS ---
DATE OF ADMISSION: 03/18/2020 DATE OF DISCHARGE: 04/06/2020 PRINCIPAL DIAGNOSES: 1. COVID-19 infection. 2. Resolved acute hypoxemic respiratory failure. 3. Hypertension. 4. Improved p.o. intake. 5. Mild dysphagia. 6. Long-standing history of noncompliance. 7. Cognitive deficits. COMPLICATIONS: None. ADVERSE REACTIONS: None. PROCEDURES: None. CONSULTATIONS: Physical Therapy and Occupational Therapy. HOSPITAL COURSE: The patient was admitted as a transfer from [facility], where she was admitted with COVID-19 infection. She did become hypoxemic here, requiring oxygen treatment. She had poor p.o. intake and was seen by both Speech Therapy and was advised on a pureed diet with aspiration precautions. She also had a 3-day calorie count, where she started to eat better. She was titrated off her oxygen. She has been able to participate with therapy on and off. She was deemed to have reached maximum medical improvement. Her niece wants to take her home. She is the power of attorney recruiter, Nadia Rose. She required she wanted a hospital bed and wheelchair, which has been arranged. [id number] documentation was done in one of my previous dictations. She is being discharged to home. DISCHARGE MEDICATIONS: 1. Norvasc 10 mg daily. 2. Carvedilol 6.25 mg b.i.d. 3. Aricept 5 mg daily. A month's supply of these prescriptions [email or web address]. PHYSICAL EXAMINATION: VITAL SIGNS: On the day of discharge, the patient is afebrile. Heart rate 58, respirations 18, oxygen saturation 97% on room air, blood pressure 137/64. CARDIOVASCULAR: S1 and S2 plus. RESPIRATORY: Normal vesicular breath sounds. ABDOMEN: Soft, nontender. Bowel sounds heard in all quadrants. EXTREMITIES: Without cyanosis or clubbing. CENTRAL NERVOUS SYSTEM: Grossly nonfocal. Cognitive deficits are present. DISCHARGE INSTRUCTIONS: 1. Continue current medications. 2. Follow low-sodium diet with the appropriate diet consistency as recommended by therapist and aspiration precautions. 3. Activity as tolerated. 4. Follow up with her PCP in 10 to 14 days. 5. Informed her niece that the prescriptions have been sent into [facility]. 6. Total time spent on this discharge including coordination of care, 35 minutes. Job ID: [id number]
--- NOTE | 2020-04-08 09:37 | PQF ---
CLINICAL DOCUMENTATION CLARIFICATION FORM: Dear : ____Shayan Ivan Date / Time: 2021 Please exercise your independent, professional judgment in responding to the clarification form. Clinical indicators are provided on the bottom of this form for your review Please check appropriate box(es): [ ] Protein Calorie Malnutrition: [ ] Mild [ x] Moderate [ ] Severe [ ] Other Malnutrition (please specify) Acute [ ] Other diagnosis [ ] Unable to determine Physician Signature: Date/Time: For continuity of documentation, please document condition throughout progress notes and discharge summary. Thank You To be completed by CDI/Coding staff for physician review: w Present w Clinical Indicators - Signs / Symptoms / Labs w Results and Location in Medical Record w [x ] w Protein calorie malnutrition w Progress note, 03/20, Shayan Dumont MD w [x ] w Total protein: 5.6L , Albumin:2.6L w Laboratory report, 03/19, w [x ] w BMI: 18.1 w FNS assessment, 04/04 w [x ] w She had poor p.o intake w DS, 04/06, Shayan Dumont MD w [x ] w Mild dysphagia w DS, 04/06, Shayan Dumont MD w [ x ] w Failure to thrive w Progress note, 03/20, Shayan Dumont MD w Present w Risk Factors w Results and Location in Medical Record w [x ] w COVID positive w Progress note, 03/20, Shayan Dumont MD w [x ] w Iron deficiency anemia w Progress note, 03/20Tim Pollachi MD w Present w Treatments w Results and Location in Medical Record w [x ] w Ensure Enlive TID w FNS assessment, 04/04 w [x ] w Sodium chloride.IV w Mr, 03/19 w w w CDS/Mailing Machine Assistant Signature: Mingo Omer Phone #: [phone] Date/Time:04/08/2020 Moderate Malnutrition (in acute illness) ? Energy Intake: <75% of estimated energy requirement for > 7 days ? Weight Loss: 1-2%/1 week; 5%/ 1 month; 7.5%/3 months ? Other: mild body fat loss; mild muscle mass loss; mild fluid accumulation; Severe Malnutrition (in acute illness) ? Energy Intake: ? 50% of estimated energy requirement for ? 5 days ? Weight Loss: >2%/1 week; >5%/1 month; >7.5%/3 months ? 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 Energy Intake: <75% of estimated energy requirement for ?1 month ? Weight Loss: 5%/1 month; 7.5%/3 months; 10%/6 months; 20%/1 year ? Other: mild body fat loss; mild muscle mass loss; mild fluid accumulation Severe Malnutrition (in chronic illness) ? Energy Intake: ?75% of estimated energy requirement for ?1 month ? Weight Loss: >5%/1 month; >7.5%/3 months; >10%/6 months; >20%/1 year ? 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
== END 2020-04-06 13:00 | disposition home or self-care (01) | DRG 177 ==
LOC: NAV ACUTE 16:22
PROVIDERS: ADMIT Internal Medicine; ATTEND Internal Medicine
DX: U07.1 COVID-19 (principal); J96.01 Acute respiratory failure with hypoxia; Z68.1 Body mass index [BMI] 19.9 or less, adult; E44.0 Moderate protein-calorie malnutrition; I10 Essential (primary) hypertension; R13.10 Dysphagia, unspecified; R62.7 Adult failure to thrive; F03.90 Unspecified dementia, unspecified severity, without behavioral disturbance, psychotic disturbance, mood disturbance, and anxiety; R41.89 Other symptoms and signs involving cognitive functions and awareness; R53.81 Other malaise; Z91.14 Patient's other noncompliance with medication regimen
CPT/HCPCS: 80053; 83735; 85025; J1650

== ENCOUNTER 2020-05-04 20:25 | Emergency (ER) | payer MEDICARE, MEDICAID ==
[2020-05-04 21:17] LABS: #Eosinphils 0.3 thou/uL (0.0-0.7); #Lymphocytes 1.3 thou/uL (1.20-3.40); #Monocytes 0.6 thou/uL (0.11-0.59); #Neutrophils 2.8 thou/uL (1.40-6.50); %Basophils 1.6 % (0.0-1.0); %Eosinophils 5.7 % (0.0-10.0); %Lymphocytes 24.5 % (21.0-51.0); %Monocytes 13.6 % (0.0-10.0); %Neutrophils 54.6 % (42.0-75.0); Hemoglobin 9.7 g/dL (12.0-16.0); Mean Corpuscular HGB CONC 29.1 g/dL (32.0-36.0); Mean Corpuscular Hemoglobin 23.3 pg (27.0-31.0); Mean Corpuscular Volume 80.3 fL (78.0-98.0); Mean Platelet Volume 10.5 fL (7.4-10.4); Platelet Count 190 thou/uL (130-400); RBC Distribution Width 17.2 % (11.5-14.5); Red Blood Cell (RBC) Count 4.11 mill/uL (4.20-5.40)
[2020-05-04 21:24] LABS: Hypochromia SLIGHT = 6-15 cells (100X) (0-5/hpf); Microcytosis MODERATE=15-30 cells (100X) (0-5/hpf)
[2020-05-04 21:32] LABS: ALT (SGPT) 15 U/L (8-55); AST (SGOT) 19 U/L (5-34); Albumin 3.1 g/dL (3.4-4.8); Alkaline Phosphatase 79 U/L (40-110); Anion Gap 11 mmol/L (10-20); BUN (Urea Nitrogen) 15 mg/dL (9.8-20.1); Bilirubin, Total 0.3 mg/dL (0.2-1.2); CK (CPK) 33 U/L (29-168); Calc. Creatinine Clearance 0 mL/min (70-130); Calcium 10.9 mg/dL (7.8-10.44); Carbon Dioxide 23 mmol/L (23-31); Chloride 108 mmol/L (98-107); Estimated GFR-MDRD 90; Globulin 4.2 g/dL (2.4-3.5); Glucose 113 mg/dL (83-110); Potassium 3.8 mmol/L (3.5-5.1); Protein, Total 7.3 g/dL (6.0-8.3); Sodium 138 mmol/L (136-145)
== END 2020-05-04 21:53 | disposition home or self-care (01) ==
LOC: NAV ERS 20:25
DX: R25.2 Cramp and spasm (principal); I10 Essential (primary) hypertension; Z79.899 Other long term (current) drug therapy
CPT/HCPCS: 80053; 82550; 85025; 99283

== ENCOUNTER 2021-09-07 12:00 | Outpatient (CLI) | payer MEDICARE, MEDICAID | END 2021-09-07 12:01 | disposition home or self-care (01) | LOC: NAV RAD 12:00 | PROVIDERS: ATTEND Nurse Practitioner Family | DX: M79.642 Pain in left hand (principal); M18.12 Unilateral primary osteoarthritis of first carpometacarpal joint, left hand; M19.042 Primary osteoarthritis, left hand ==